=== PATIENT | female | born 1995 ===

== ENCOUNTER 2022-02-23 11:44 | Emergency (ER) | payer OTHER ==
[2022-02-23 13:07] LABS: HCG Qualitative,Urine Negative (Negative)
[2022-02-23 13:11] LABS: Bilirubin,Urine NEG (Negative); Blood,Urine LG (Negative); Color,Urine Yellow (Yellow); Urobilinogen,Urine < 2.0 mg/dL (<2.0)
[2022-02-23 13:16] LABS: RBC,Urine > 182.0 /HPF (0.0-6.0); WBC,Urine > 182.0 /HPF (0.0-6.0)
== END 2022-02-23 22:47 | disposition left against medical advice (07) ==
LOC: ED 11:44
DX: N39.0 Urinary tract infection, site not specified (principal); R10.30 Lower abdominal pain, unspecified
CPT/HCPCS: 81001; 81025